=== PATIENT | male | born 1980 | race Caucasian/White ===

== ENCOUNTER 2023-04-23 19:50 | Emergency (ER) | payer OTHER ==
[~2023-04-23] VITALS: Ht 193 cm; Wt 83.4 kg
[2023-04-23] MEDS ORDERED: PROCHLORPERAZINE 10 MG/2ML INJ (COMPAZINE) IM ONE ×2 (20:15)
[2023-04-23] MEDS ORDERED: KETOROLAC 15 MG/ML VIAL IM ONE ×2 (20:15)
--- NOTE | 2023-04-23 20:16 | ED General ---
General Chief Complaint: Head/Cervical Problems Stated Complaint: LIGHTHEADED,NECK PAIN,SWELLING IN L SIDE QUAKER Source of Information: Patient Exam Limitations: No Limitations History of Present Illness Date Seen by Provider: Apr 23, 2023 Time Seen by Provider: 19:52 Initial Comments 42-year-old male with no pertinent past medical history coming in due to a sunburn with swelling and edema in his forehead with a headache. He has been in the sun quite a bit over the past several days for his work. He has been putting aloe vera on it. Noticed that the effects of it were getting a lot worse today, and he noticed the swelling in his forehead earlier today. Otherwise denies any fever, neck stiffness, chest pain, shortness of breath, or any other concerns. Allergies and Home Medications Allergies Coded Allergies: diphenhydramine (Unverified Adverse Reaction, Mild, GI upset, 04/23/23) Patient Home Medication List Home Medication List Reviewed: Yes Review of Systems Review of Systems Constitutional: No fever EENTM: no symptoms reported Respiratory: no symptoms reported Cardiovascular: no symptoms reported Genitourinary: no symptoms reported Musculoskeletal: no symptoms reported Skin: see HPI Psychiatric/Neurological: See HPI Past [id number]-Pdsamd Hx Patient Social History Tobacco Use?: No Smoking Status: Former Smoker Past Medical History Surgeries: Yes Orthopedic Physical Exam Vital Signs Capillary Refill : Height, Weight, BMI Height: '" Weight: lbs. oz. kg; BMI Method: General Appearance: No Apparent Distress, WD/WN Eyes: Bilateral Eye Normal Inspection, Bilateral Eye PERRL, Bilateral Eye EOMI HEENT: PERRL/EOMI, Normal ENT Inspection, Pharynx Normal Neck: Full Range of Motion, Normal Inspection, Non Tender, Supple Respiratory: Chest Non Tender, Lungs Clear, Normal Breath Sounds, No Accessory Muscle Use, No Respiratory Distress Cardiovascular: Regular Rate, Rhythm, No Edema, Normal Peripheral Pulses Gastrointestinal: Normal Bowel Sounds, Non Tender, Soft Back: Normal Inspection, No CVA Tenderness Extremity: Normal Capillary Refill, Normal Inspection, Normal Range of Motion, Non Tender, No Calf Tenderness, No Pedal Edema Neurologic/Psychiatric: Alert, No Motor/Sensory Deficits, Normal Mood/Affect Skin: Normal Color, Warm/Dry, Other (Blanching erythema to the entire head and neck region with edema under the scalp mostly laterally) Progress/Results/Core Measures Suspected Sepsis SIRS Temperature: Pulse: Respiratory Rate: Blood Pressure / Mean: Results/Orders My Orders Orders - VALERIA BELL MD Ketorolac Injection (Toradol Injection) (04/23/23 20:15) Prochlorperazine Injection (Compazine In (04/23/23 20:15) Prochlorperazine Injection (Compazine In (04/23/23 20:15) Ketorolac Injection (Toradol Injection) (04/23/23 20:15) Vital Signs/I&O Capillary Refill : Progress Note : Progress Note 42-year-old male presenting due to severe sunburn with edema on his scalp. ABCs were intact and vitals were stable on presentation. Physical exam with no fever, no meningismus, neuro exam intact. His headache appears to be related to the sunburn, no clinical signs of meningitis. He would be low risk for temporal arteritis, additionally his temporal exam does not show any hardened blood vessels. Also has normal vision. This appears like a typical sunburn with scalp edema associated with it. He was given Compazine and Toradol IM for his discomfort. I believe he is otherwise well-appearing and stable for discharge with outpatient follow-up. He was sent home with strict return precautions. Departure Impression Primary Impression: Photodermatitis due to sun Disposition: 01 HOME, SELF-CARE Condition: Stable Departure-Patient Inst. Decision time for Depature: 20:20 Referrals: NO,LOCAL PHYSICIAN (PCP/Family) Primary Care Physician Patient Instructions: Sunburn (DC) Add. Discharge Instructions: This essentially is a very bad sunburn that causes edema under the skin which is essentially just fluid building up under the skin. This likely will get a little bit worse before gets better. It can travel down your face and around your eyes even. Take ibuprofen and/or Tylenol as needed for pain. You can use aloe vera on your skin. The most important thing is to protect your skin from further burning. The best thing would probably be to use a hat as well as using sunscreen. Work/School Note: Work Release Form Date Seen in the Emergency Department: Apr 23, 2023 Return to Work: Apr 24, 2023 Restrictions: No Restrictions VALERIA BELL MD Apr 23, 2023 20:16
[2023-04-23 20:31] VITALS: BP 124/69
== END 2023-04-23 20:31 | disposition home or self-care (01) ==
LOC: ER FS 19:53
DX: L56.8 Other specified acute skin changes due to ultraviolet radiation (principal); Z87.891 Personal history of nicotine dependence; Z28.310 Unvaccinated for COVID-19
CPT/HCPCS: 99284